=== PATIENT | female | born 1995 | race Caucasian/White ===

== ENCOUNTER 2017-06-19 17:03 | Emergency (ER) | payer MEDICAID ==
[2017-06-19 17:03] VITALS: BMI 31.1
[2017-06-19 17:09] VITALS: RESP 20
[2017-06-19] MEDS ORDERED: Sodium Chloride 0.9% 1,000 ML IV ONE (17:24)
--- NOTE | 2017-06-19 17:33 | C.PDOC ---
History Of Present Illness 21 year old female presents to the ED with complaints of left back pain and diarrhea for approximately 3-4 days. Patient has taken Motrin with no relief. She denies any past medical history, fever, chills, nausea, or vomiting. Time Seen by Provider: 06/19/17 17:14 Chief Complaint (Nursing): Back Pain History Per: Patient History/Exam Limitations: no limitations Onset/Duration Of Symptoms: Days (3-4 days) Current Symptoms Are (Timing): Still Present Quality Of Discomfort: "Pain" Previous Symptoms: None Associated Symptoms: None Recent travel outside of the [place]: No Past Medical History Reviewed: Historical Data, Nursing Documentation, Vital Signs Vital Signs: Last Vital Signs Temp 98.1 F 06/19/17 17:06 Pulse 108 H 06/19/17 17:06 Resp 20 06/19/17 17:06 BP 122/88 06/19/17 17:06 Pulse Ox 98 06/19/17 17:35 - Medical History PMH: Anxiety, Bipolar Disorder, Post Traumatic Stress Disorder - [facility] Procedures EXTRACTION OF POC, LOW CERVICAL, OPEN APPROACH (07/05/16) Family History: States: Unknown Family Hx - Social History Hx Alcohol Use: No Hx Substance Use: No - Immunization History Hx Tetanus Toxoid Vaccination: No Hx Influenza Vaccination: No Hx Pneumococcal Vaccination: No Review Of Systems Constitutional: Negative for: Fever, Chills Cardiovascular: Negative for: Chest Pain, Palpitations Respiratory: Negative for: Cough, Shortness of Breath Gastrointestinal: Positive for: Diarrhea. Negative for: Nausea, Vomiting Musculoskeletal: Positive for: Back Pain Neurological: Negative for: Weakness, Numbness Physical Exam - Physical Exam Appears: Non-toxic, No Acute Distress Skin: Warm, Dry Head: Atraumatic Eye(s): bilateral: Normal Inspection, EOMI Oral Mucosa: Moist Neck: Supple Chest: Symmetrical, No Deformity Cardiovascular: Rhythm Regular, No Murmur Respiratory: Normal Breath Sounds, No Rhonchi, No Wheezing Gastrointestinal/Abdominal: Soft, No Tenderness, No Distention, No Guarding, No Rebound Back: Paraspinal Tenderness (left parathoracic tenderness ) Extremity: Normal ROM, No Tenderness Neurological/Psych: Oriented x3, Normal Speech, Normal Cognition ED Course And Treatment - Laboratory Results Result Diagrams: 06/19/17 17:50 06/19/17 17:50 Lab Interpretation: Normal Urine POC: Negative O2 Sat by Pulse Oximetry: 98 (room air ) Progress Note: Labs and UA were ordered. Patient was given Toradol, Flexeril, and IV fluids. On re-evaluation feeling better in no distress. Abdomen soft non-tender Reassessment Condition: Improved Disposition Counseled Patient/Family Regarding: Studies Performed, Diagnosis, Need For Followup, Rx Given - Disposition Referrals: [facility] [Outside] [facility] [Outside] Disposition: HOME/ ROUTINE Disposition Time: 18:45 Condition: STABLE Prescriptions: Naproxen [Naprosyn] 1 tab PO BID PRN #25 tab PRN Reason: Pain Instructions: Acute Diarrhea (ED), Back Pain (ED) Forms: [facility] (Maltese) - POA Present On Arrival: None - Clinical Impression Clinical Impression: Low back strain, Diarrhea - Scribe Statement The provider has reviewed the documentation as recorded by the Scribe Sharmin Contreras All medical record entries made by the Scribe were at my direction and personally dictated by me. I have reviewed the chart and agree that the record accurately reflects my personal performance of the history, physical exam, medical decision making, and the department course for this patient. I have also personally directed, reviewed, and agree with the discharge instructions and disposition.
[2017-06-19 17:38] LABS: RBC URINE < 1 /hpf (0-3); URINE BILIRUBIN NEGATIVE (NEGATIVE); URINE BLOOD NEGATIVE (NEGATIVE); URINE COLOR Yellow (YELLOW); URINE GLUCOSE (UA) NORMAL (Normal); URINE KETONE NEGATIVE (NEGATIVE); URINE LEUKOCYTE ESTERASE NEG Leu/uL (Negative); URINE PROTEIN NEGATIVE (NEGATIVE); URINE UROBILINOGEN NORMAL mg/dL (0.2-1.0); WBC URINE 1 /hpf (0-5)
[2017-06-19] MEDS ORDERED: Sodium Chloride 0.9% 1,000 ML ONE (17:55)
[2017-06-19 18:01] LABS: BASO % 0.3 % (0.0-2.0); EOS % 0.8 % (0.0-4.0); HEMATOCRIT 37.2 % (34.0-47.0); LYMPH # 1.2 K/uL (1.0-4.3); LYMPH % 29.6 % (20.0-40.0); MEAN CELL VOLUME 84.7 fL (81.0-99.0); MEAN CORPUSCULAR HEMOGLOBIN 29.1 pg (27.0-31.0); MEAN CORPUSCULAR HGB CONC 34.3 g/dL (33.0-37.0); MEAN PLATELET VOLUME 9.2 fL (7.2-11.7); MONO # 0.3 K/uL (0.0-0.8); MONO % 7.6 % (0.0-10.0); RED CELL DISTRIBUTION WIDTH 12.8 % (11.5-14.5)
[2017-06-19 18:10] LABS: CHLORIDE 102 mmol/L (98-107)
[2017-06-19 18:11] LABS: POTASSIUM 3.7 mmol/L (3.6-5.2); SODIUM 137 mmol/L (132-148)
[2017-06-19 18:13] LABS: GFR AFRICAN-AMERICAN > 60
[2017-06-19 18:14] LABS: ALB/GLOB RATIO 1.4 (1.0-2.1); ALKALINE PHOSPHATASE 83 U/L (38-126); ALT/SGPT 37 U/L (9-52); AST/SGOT 26 U/L (14-36); BILIRUBIN,TOTAL 0.5 mg/dL (0.2-1.3); BLOOD UREA NITROGEN 10 mg/dL (7-17); CALCIUM 9.1 mg/dl (8.6-10.4); CARBON DIOXIDE 24 mmol/L (22-30); GLUCOSE,RANDOM 102 mg/dL (65-105); TOTAL PROTEIN 6.7 g/dL (6.3-8.3)
[2017-06-19 18:50] VITALS: BP 105/69; PULSE 77; TEMP 98.3; O2SAT 99
== END 2017-06-19 18:50 | disposition home or self-care (01) ==
LOC: C.ER 17:03
DX: S39.012A Strain of muscle, fascia and tendon of lower back, initial encounter (principal); X58.XXXA Exposure to other specified factors, initial encounter; R19.7 Diarrhea, unspecified
CPT/HCPCS: 80053; 81001; 83690; 84703; 85025; 96361; 96374; 99283; J1885; J7040

== ENCOUNTER 2017-08-04 14:03 | Emergency (ER) | payer MEDICAID ==
[2017-08-04 14:26] VITALS: BMI 30.4
[2017-08-04 14:29] VITALS: O2SAT 99
[2017-08-04 16:02] VITALS: BP 123/78; PULSE 83; RESP 18; TEMP 98.6
--- NOTE | 2017-08-04 17:20 | C.PDOC ---
History Of Present Illness Patient is a 22 y/o female who presents to the ED with a complaint of vaginal discharge since yesterday. Patient describes discharge as white/yellow in nature with no smell. Patient denies any dysuria or hematuria, or sexual activity with anyone else other than her partner. Chief Complaint (Nursing): Female Genitourinary History Per: Patient History/Exam Limitations: no limitations Onset/Duration Of Symptoms: Days (symptoms began yesterday) Current Symptoms Are (Timing): Still Present Recent travel outside of the [place]: No Past Medical History Reviewed: Historical Data, Nursing Documentation, Vital Signs Vital Signs: Last Vital Signs Temp 98.6 F 08/04/17 16:02 Pulse 83 08/04/17 16:02 Resp 18 08/04/17 16:02 BP 123/78 08/04/17 16:02 Pulse Ox 99 08/04/17 17:27 - Medical History PMH: Anxiety, Bipolar Disorder, Post Traumatic Stress Disorder Surgical History: No Surg Hx - [facility] Procedures EXTRACTION OF POC, LOW CERVICAL, OPEN APPROACH (07/05/16) Family History: States: Unknown Family Hx - Social History Hx Alcohol Use: No Hx Substance Use: No - Immunization History Hx Tetanus Toxoid Vaccination: No Hx Influenza Vaccination: No Hx Pneumococcal Vaccination: No Review Of Systems Genitourinary: Positive for: Vaginal Discharge (white/yellow in nature). Negative for: Dysuria, Hematuria Physical Exam - Physical Exam Appears: Well, Non-toxic, No Acute Distress Skin: Normal Color, Warm, Dry Head: Atraumatic, Normacephalic Oral Mucosa: Moist Cardiovascular: Rhythm Regular, No Murmur Respiratory: Normal Breath Sounds, No Rales, No Rhonchi, No Wheezing Neurological/Psych: Oriented x3, Normal Speech, Normal Cognition ED Course And Treatment O2 Sat by Pulse Oximetry: 99 (room air) Pulse Ox Interpretation: Normal Progress Note: test administered; deferred pelvic exam. Disposition - Disposition Disposition: HOME/ ROUTINE Disposition Time: 15:15 Condition: GOOD Additional Instructions: Thank you for letting us take care of you today. Your provider was Dr. Oquendo. You were treated for vaginal discharge. The emergency medical care you received today was directed at your acute symptoms. If you were prescribed any medication, please fill it and take as directed. It may take several days for your symptoms to resolve. Return to the Emergency Department if your symptoms worsen, do not improve, or if you have any other problems. Please contact your doctor or call one of the physicians/clinics you have been referred to that are listed on the Patient Visit Information form that is included in your discharge packet. Bring any paperwork you were given at discharge with you along with any medications you are taking to your follow up visit. Our treatment cannot replace ongoing medical care by a primary care provider (PCP) outside of the emergency department. Thank you for allowing the [facility] team to be part of your care today. Follow up with your doctor in 2-3 days for re-evaluation and further management. Prescriptions: Fluconazole [Diflucan] 150 mg PO ONCE #1 tab metroNIDAZOLE [Flagyl] 500 mg PO Q8 #21 tab Instructions: Bacterial Vaginosis (ED) Forms: [employer] (Latvian) - Clinical Impression Clinical Impression: Vaginosis - Scribe Statement The provider has reviewed the documentation as recorded by the Scribe Ammy Jones All medical record entries made by the Scribe were at my direction and personally dictated by me. I have reviewed the chart and agree that the record accurately reflects my personal performance of the history, physical exam, medical decision making, and the department course for this patient. I have also personally directed, reviewed, and agree with the discharge instructions and disposition.
== END 2017-08-04 16:02 | disposition home or self-care (01) ==
LOC: C.ER 14:03
DX: N76.0 Acute vaginitis (principal)

== ENCOUNTER 2017-10-22 13:30 | Emergency (ER) | payer MEDICAID ==
[2017-10-22 13:34] VITALS: BMI 28.3
--- NOTE | 2017-10-22 14:21 | C.PDOC ---
History Of Present Illness EPIG PAIN, NAUSEA SINCE YEST. HO GASTRITIS. ONSET AFTER EATING SAUSAGE LAST NIGHT. PS GETS SX "OCCASIONALLY", NO ON CURRENT GI MEDS. NO OTHER ASSOC SX EXAM MILD DIST NONTOXIC HEENT NEG ABD +EPIG TEND SOFT NO R/G GOOD TURGOR REMAINDER NEG Time Seen by Provider: 10/22/17 14:15 Chief Complaint (Nursing): Abdominal Pain History Per: Patient History/Exam Limitations: no limitations Onset/Duration Of Symptoms: Days (1) Past Medical History Reviewed: Historical Data, Nursing Documentation, Vital Signs Vital Signs: Last Vital Signs Temp 97.7 F 10/22/17 13:34 Pulse 109 H 10/22/17 13:34 Resp 18 10/22/17 13:34 BP 114/77 10/22/17 13:34 Pulse Ox 99 10/22/17 16:00 - Medical History PMH: Anxiety, Bipolar Disorder, Post Traumatic Stress Disorder - [facility] Procedures EXTRACTION OF POC, LOW CERVICAL, OPEN APPROACH (07/05/16) Family History: States: No Known Family Hx - Social History Hx Alcohol Use: No Hx Substance Use: No - Immunization History Hx Tetanus Toxoid Vaccination: No Hx Influenza Vaccination: Yes Hx Pneumococcal Vaccination: Yes Review Of Systems Except As Marked, All Systems Reviewed And Found Negative. Constitutional: Negative for: Fever Gastrointestinal: Positive for: Nausea, Abdominal Pain (epigastric pain). Negative for: Vomiting Genitourinary: Negative for: Dysuria Physical Exam - Physical Exam Appears: Non-toxic, In Acute Distress (mild) Skin: Warm, Dry, No Rash Head: Atraumatic, Normacephalic Eye(s): bilateral: Normal Inspection, PERRL, EOMI Oral Mucosa: Moist Respiratory: Normal Breath Sounds Gastrointestinal/Abdominal: Soft, Tenderness (epigastric tenderness), No Guarding, No Rebound Back: Normal Inspection, No CVA Tenderness Extremity: Normal ROM, No Swelling Neurological/Psych: Oriented x3, Normal Speech, Normal Motor ED Course And Treatment - Laboratory Results Result Diagrams: 10/22/17 15:23 10/22/17 15:23 O2 Sat by Pulse Oximetry: 99 (RA) Pulse Ox Interpretation: Normal Progress - Re-Evaluation Re-evaluation Note: 10/22/17 16:00 ABD PAIN IMPROVED. CO NECK PAIN, CASTRO. VSS. 10/22/17 16:49 FEELS BETTER. WILL DC - Data Reviewed Data Reviewed: Lab, Diagnostic imaging, Old records Medical Decision Making Medical Decision Making: PLAN: * CBC * CMP * Urinalysis * Magic Mouth Wash PO * Pepcid IVP * Protonix IVP * Zofran IVP * Sodium Chloride IV Disposition Counseled Patient/Family Regarding: Studies Performed, Diagnosis, Need For Followup, Rx Given - Disposition Referrals: YOUR,[facility]MD [Other] Disposition: HOME/ ROUTINE Disposition Time: 16:49 Condition: IMPROVED Prescriptions: Acetaminophen [Tylenol Extra Strength] 2 tab PO Q6 #30 tablet Cyclobenzaprine [Flexeril] 10 mg PO TID #15 tab Famotidine [Pepcid AC] 10 mg PO QN #30 tablet Lidocaine 5% [Lidoderm] 1 ea TD PRN PRN #10 patch PRN Reason: Pain, Moderate (4-7) Omeprazole Magnesium [Prilosec Otc] 20 mg PO QPM #30 tab Instructions: Gastritis (ED), Diet for Ulcers and Gastritis (ED), Cervical Sprain (ED) Forms: [employer] (Italian) - Clinical Impression Clinical Impression: Abdominal pain, Nausea, Neck pain - Scribe Statement The provider has reviewed the documentation as recorded by the Yisselibmiki Limon Provider Attestation: All medical record entries made by the Yisselibmiki were at my direction and personally dictated by me. I have reviewed the chart and agree that the record accurately reflects my personal performance of the history, physical exam, medical decision making, and the department course for this patient. I have also personally directed, reviewed, and agree with the discharge instructions and disposition.
[2017-10-22 14:42] LABS: RBC URINE < 1 /hpf (0-3); URINE BILIRUBIN NEGATIVE (NEGATIVE); URINE BLOOD NEGATIVE (NEGATIVE); URINE COLOR Yellow (YELLOW); URINE GLUCOSE (UA) NORMAL (Normal); URINE KETONE NEGATIVE (NEGATIVE); URINE LEUKOCYTE ESTERASE NEG Leu/uL (Negative); URINE PROTEIN NEGATIVE (NEGATIVE); URINE UROBILINOGEN NORMAL mg/dL (0.2-1.0); WBC URINE < 1 /hpf (0-5)
[2017-10-22] MEDS ORDERED: Sodium Chloride 0.9% 1,000 ML IV ONE (14:47)
[2017-10-22] MEDS ORDERED: Mag&Al/Simet/Diphen/Lido 237 ML KIT PO STA (14:49)
[2017-10-22] MEDS ORDERED: Sodium Chloride 0.9% 1,000 ML ONE (15:04)
[2017-10-22 15:27] LABS: BASO % 0.2 % (0.0-2.0); EOS # 0.1 K/uL (0.0-0.7); EOS % 1.1 % (0.0-4.0); HEMATOCRIT 41.3 % (34.0-47.0); LYMPH % 13.2 % (20.0-40.0); MEAN CELL VOLUME 86.2 fL (81.0-99.0); MEAN CORPUSCULAR HEMOGLOBIN 29.6 pg (27.0-31.0); MEAN CORPUSCULAR HGB CONC 34.3 g/dL (33.0-37.0); MONO # 0.3 K/uL (0.0-0.8); MONO % 3.8 % (0.0-10.0); RED CELL DISTRIBUTION WIDTH 13.3 % (11.5-14.5)
[2017-10-22 15:29] LABS: WHITE BLOOD COUNT 7.3 K/uL (4.8-10.8)
[2017-10-22 15:40] LABS: ALB/GLOB RATIO 1.4 (1.0-2.1); ALKALINE PHOSPHATASE 91 U/L (38-126); ALT/SGPT 55 U/L (9-52); AST/SGOT 39 U/L (14-36); BILIRUBIN,TOTAL 0.5 mg/dL (0.2-1.3); BLOOD UREA NITROGEN 11 mg/dL (7-17); CALCIUM 8.2 mg/dl (8.6-10.4); CARBON DIOXIDE 29 mmol/L (22-30); CHLORIDE 98 mmol/L (98-107); GFR AFRICAN-AMERICAN > 60; GLUCOSE,RANDOM 83 mg/dL (65-105); POTASSIUM 4.3 mmol/L (3.6-5.2); SODIUM 134 mmol/L (132-148); TOTAL PROTEIN 7.4 g/dL (6.3-8.3)
[2017-10-22] MEDS ORDERED: Lidocaine 5% Patch TD STA (15:57)
[2017-10-22] MEDS ORDERED: Lidocaine 5% Patch TD ONE (16:22)
[2017-10-22 17:04] VITALS: BP 116/74; PULSE 87; RESP 16; TEMP 98.4; O2SAT 98
== END 2017-10-22 17:15 | disposition home or self-care (01) ==
LOC: C.ER 13:30
DX: M54.2 Cervicalgia (principal); R11.0 Nausea; R10.9 Unspecified abdominal pain
CPT/HCPCS: 80053; 81001; 83690; 85025; 96374; 96375; 99285; C9113; J1885; J7040

== ENCOUNTER 2018-02-02 18:40 | Emergency (ER) | payer MEDICAID ==
[2018-02-02 18:40] VITALS: BMI 28.3
[2018-02-02 19:14] VITALS: O2SAT 99
[2018-02-02 20:20] LABS: HCG,QUALITATIVE URINE NEGATIVE (NEGATIVE)
[2018-02-02 20:25] LABS: SQUAMOUS EPITHIAL < 1 /hpf (0-5); URINE BILIRUBIN NEGATIVE (NEGATIVE); URINE BLOOD NEGATIVE (NEGATIVE); URINE CLARITY Clear (Clear); URINE COLOR Yellow (YELLOW); URINE GLUCOSE (UA) NORMAL (Normal); URINE LEUKOCYTE ESTERASE NEG Leu/uL (Negative); URINE PROTEIN 1+ mg/dL (NEGATIVE)
--- NOTE | 2018-02-02 20:58 | C.PDOC ---
History Of Present Illness Patient is a 22 y/o female who presents to the ED with two children complaining of psoriasis on scalp and face and questionable UTI. Patient admits urinary frequency and suprapubic discomfort since yesterday. No other physical complaints at this time. Time Seen by Provider: 02/02/18 19:20 Chief Complaint (Nursing): Abnormal Skin Integrity History Per: Patient History/Exam Limitations: no limitations Onset/Duration Of Symptoms: Days (1) Current Symptoms Are (Timing): Still Present Quality Of Symptoms: Itching Recent travel outside of the [place]: No Past Medical History Reviewed: Historical Data, Nursing Documentation, Vital Signs Vital Signs: Last Vital Signs Temp 98.3 F 02/02/18 21:20 Pulse 85 02/02/18 21:20 Resp 16 02/02/18 21:20 BP 105/69 02/02/18 21:20 Pulse Ox 99 02/02/18 21:51 - Medical History PMH: Anxiety, Bipolar Disorder, Post Traumatic Stress Disorder Surgical History: No Surg Hx - [facility] Procedures EXTRACTION OF POC, LOW CERVICAL, OPEN APPROACH (07/05/16) Family History: States: Unknown Family Hx - Social History Hx Alcohol Use: No Hx Substance Use: No - Immunization History Hx Tetanus Toxoid Vaccination: No Hx Influenza Vaccination: Yes Hx Pneumococcal Vaccination: Yes Review Of Systems Gastrointestinal: Positive for: Abdominal Pain (suprapubic discomfort) Genitourinary: Positive for: Frequency Skin: Positive for: Other (psoriasis outbreak on scalp and face) Physical Exam - Physical Exam Appears: Well, No Acute Distress Skin: Rash (scalp scaling, erythematous, scalp facial rash) Head: Atraumatic, Normacephalic Eye(s): bilateral: Normal Inspection Oral Mucosa: Moist Neck: Normal ROM, Supple Lymphatic: No Adenopathy Cardiovascular: Rhythm Regular Respiratory: Normal Breath Sounds Gastrointestinal/Abdominal: Soft, No Tenderness, No Guarding, No Rebound Back: No CVA Tenderness Neurological/Psych: Oriented x3, Normal Speech, Normal Cognition ED Course And Treatment O2 Sat by Pulse Oximetry: 99 Progress Note: Macrobid and urine test administered. Patient is resting comfortably and stable for discharge. Advised to follow up with PMD if symptoms worsen. Disposition - Disposition Disposition: HOME/ ROUTINE Disposition Time: 20:43 Condition: STABLE Additional Instructions: Follow up with your PMD within 1-2 days. Return to ED if feel worse. Prescriptions: Clobetasol Propionate/Emoll [Clobetasol Emulsion 0.05% Foam] 1 appl TP BID #100 g Fluocinolone/Shower Cap [[place]/Fs 118.28 ml] 1 appl TP QPM #1 oil Anthralin [Drithocreme Hp] 1 unit TP TID #1 cre Nitrofurantoin Macrocrystals [Macrobid] 1 cap PO BID #14 cap Phenazopyridine [Pyridium] 200 mg PO TID #6 tab Instructions: Urinary Tract Infections in Adults, Psoriatic Arthritis in Adults Forms: [employer] (Albanian) - Clinical Impression Clinical Impression: Psoriasis, UTI (urinary tract infection) - Scribe Statement The provider has reviewed the documentation as recorded by the Scribe Ammy Joens All medical record entries made by the Scribe were at my direction and personally dictated by me. I have reviewed the chart and agree that the record accurately reflects my personal performance of the history, physical exam, medical decision making, and the department course for this patient. I have also personally directed, reviewed, and agree with the discharge instructions and disposition.
[2018-02-02 21:21] VITALS: BP 105/69; PULSE 85; RESP 16; TEMP 98.3
== END 2018-02-02 21:25 | disposition home or self-care (01) ==
LOC: C.ER 18:40
DX: L40.9 Psoriasis, unspecified (principal); N39.0 Urinary tract infection, site not specified

== ENCOUNTER 2018-02-16 19:21 | Emergency (ER) | payer MEDICAID ==
[2018-02-16 19:22] VITALS: BMI 28.3
--- NOTE | 2018-02-16 19:56 | C.PDOC ---
History Of Present Illness 22yo female, with history of PTSD, anxiety, bipolar disorder, compliant with her psychiatric medications, presents to ED for evaluation of chest pain. Patient states she had a panic attack yesterday and has been feeling chest discomfort, with associated shortness of breath and left arm discomfort as well. She states she was involved in an argument with her partner which triggered her panic attack. She denies any abdominal pain, nausea, vomiting, and offers no other medical complaints. She denies any drug or alcohol use as well. Time Seen by Provider: 02/16/18 20:00 Chief Complaint (Nursing): Chest Pain History Per: Patient History/Exam Limitations: no limitations Onset/Duration Of Symptoms: Days (1) Current Symptoms Are (Timing): Still Present Quality: Pressure Additional History Per: Patient Past Medical History Reviewed: Historical Data, Nursing Documentation, Vital Signs Vital Signs: Last Vital Signs Temp 98 F 02/16/18 21:56 Pulse 81 02/16/18 22:35 Resp 15 02/16/18 22:35 BP 103/66 02/16/18 22:35 Pulse Ox 98 02/16/18 22:52 - Medical History PMH: Anxiety, Bipolar Disorder, Post Traumatic Stress Disorder Surgical History: No Surg Hx - [facility] Procedures EXTRACTION OF POC, LOW CERVICAL, OPEN APPROACH (07/05/16) Family History: States: Unknown Family Hx - Social History Hx Alcohol Use: No Hx Substance Use: No - Immunization History Hx Tetanus Toxoid Vaccination: No Hx Influenza Vaccination: Yes Hx Pneumococcal Vaccination: No Review Of Systems Except As Marked, All Systems Reviewed And Found Negative. Constitutional: Negative for: Fever, Chills Cardiovascular: Positive for: Chest Pain Respiratory: Positive for: Shortness of Breath Gastrointestinal: Negative for: Nausea, Vomiting, Abdominal Pain Physical Exam - Physical Exam Appears: Non-toxic, No Acute Distress Skin: Normal Color, Warm, Dry Head: Atraumatic, Normacephalic Eye(s): bilateral: Normal Inspection, PERRL, EOMI Neck: Normal ROM, Supple Chest: Symmetrical Cardiovascular: Rhythm Regular Respiratory: Normal Breath Sounds, No Wheezing Gastrointestinal/Abdominal: Normal Exam, Soft, No Tenderness Extremity: Normal ROM, No Deformity, No Swelling Neurological/Psych: Oriented x3 ED Course And Treatment - Laboratory Results Result Diagrams: 02/16/18 20:12 02/16/18 20:12 ECG: Interpreted By Me ECG Rhythm: Sinus Rhythm ECG Interpretation: Normal Interpretation Of ECG: Normal intervals Rate From EC O2 Sat by Pulse Oximetry: 98 (RA) Pulse Ox Interpretation: Normal Medical Decision Making Medical Decision Making: Impression: Anxiety Plan: -- Labs -- EKG -- Xanax 0.25 mg PO Time: 2129 Labs reviewed and indicative of elevated DDimer. CT Angio Chest [PE] protocol ordered. Time: 2246 CT Angio Chest FINDINGS: Pulmonary arteries: No pulmonary embolism. 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 Lungs: No consolidation. Pleural space: No significant effusion. No pneumothorax. Heart: No cardiomegaly. No significant pericardial effusion. Bones/joints: No acute fracture. Soft tissues: Unremarkable. Lymph nodes: No pathologically enlarged lymph nodes. IMPRESSION: 1. No CT evidence of pulmonary embolism. 2. Incidental/non-acute findings are described above. Patient informed of CT findings. She reports improvement in chest pain as well. Stable for discharge home, advised to follow up with PCP in 2-3 days. Disposition - Disposition Referrals: [facility] [Outside] Disposition: HOME/ ROUTINE Disposition Time: 22:52 Condition: STABLE Prescriptions: ALPRAZolam [Xanax] 0.25 mg PO TID PRN #15 tab PRN Reason: Anxiety Instructions: Panic Disorder Forms: [facility] (Kinyarwanda) Print Language: AZERI - Clinical Impression Clinical Impression: Chest pain, Anxiety - Scribe Statement The provider has reviewed the documentation as recorded by the Scribe (Dariela Slaughter) Provider Attestation: All medical record entries made by the Scribe were at my direction and personally dictated by me. I have reviewed the chart and agree that the record accurately reflects my personal performance of the history, physical exam, medical decision making, and the department course for this patient. I have also personally directed, reviewed, and agree with the discharge instructions and disposition.
[2018-02-16 20:17] LABS: BASO % 0.6 % (0.0-2.0); EOS # 0.1 K/uL (0.0-0.7); EOS % 2.1 % (0.0-4.0); HEMOGLOBIN 13.1 g/dL (11.0-16.0); LYMPH # 2.4 K/uL (1.0-4.3); LYMPH % 35.5 % (20.0-40.0); MEAN CELL VOLUME 85.6 fL (81.0-99.0); MEAN CORPUSCULAR HEMOGLOBIN 29.5 pg (27.0-31.0); MEAN CORPUSCULAR HGB CONC 34.4 g/dL (33.0-37.0); MEAN PLATELET VOLUME 9.3 fL (7.2-11.7); MONO # 0.4 K/uL (0.0-0.8); MONO % 5.6 % (0.0-10.0); NEUT # 3.8 K/uL (1.8-7.0); NEUT % 56.2 % (50.0-75.0); NRBC % 0.1 % (0.0-2.0); RBC 4.44 Mil/uL (3.80-5.20); WHITE BLOOD COUNT 6.7 K/uL (4.8-10.8)
[2018-02-16 20:28] LABS: ALB/GLOB RATIO 1.2 (1.0-2.1); ALBUMIN 3.9 g/dL (3.5-5.0); ALT/SGPT 16 U/L (9-52); AST/SGOT 21 U/L (14-36); BLOOD UREA NITROGEN 12 mg/dL (7-17); CALCIUM 8.9 mg/dl (8.6-10.4); GFR AFRICAN-AMERICAN > 60; GFR NON-AFRICAN AMERICAN > 60
[2018-02-16] MEDS ORDERED: Iodixanol 320 MG/ML 100 ML BOTTLE IV ONE (21:40)
[2018-02-16 21:58] VITALS: TEMP 98
[2018-02-16 22:47] VITALS: BP 103/66; PULSE 81; RESP 15
--- NOTE | 2018-02-16 22:47 | CT ---
EXAM: CT Angiography Chest With Intravenous Contrast CLINICAL HISTORY: 22 years old, female; Pain; Chest pain; Other: SOB and anxiety; Patient HX: High d-dimmer; Additional info: Chest pain, SOB TECHNIQUE: Axial computed tomographic angiography images of the chest with intravenous contrast using pulmonary embolism protocol. All CT scans at this facility use one or more dose reduction techniques, viz.: automated exposure control; ma/kV adjustment per patient size (including targeted exams where dose is matched to indication; i.e. head); or iterative reconstruction technique. MIP reconstructed images were created and reviewed. Coronal and sagittal reformatted images were created and reviewed. CONTRAST: 100 mL of visipaque administered intravenously. COMPARISON: No relevant prior studies available. FINDINGS: Pulmonary arteries: No pulmonary embolism. 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 Lungs: No consolidation. Pleural space: No significant effusion. No pneumothorax. Heart: No cardiomegaly. No significant pericardial effusion. Bones/joints: No acute fracture. Soft tissues: Unremarkable. Lymph nodes: No pathologically enlarged lymph nodes. IMPRESSION: 1. No CT evidence of pulmonary embolism. 2. Incidental/non-acute findings are described above.
[2018-02-16 22:52] VITALS: O2SAT 98
--- NOTE | 2018-02-17 07:54 | RAD ---
Chest x-ray single frontal view History: Chest pain. Comparison: None available. Findings: Suggestion of a right-sided aortic arch. Correlation with chest CT may be helpful clinically indicated. Mild venous congestion. Heart size within normal limits. Impression: Suggestion of a right-sided aortic arch. Correlation with chest CT may be helpful clinically indicated. Mild venous congestion.
--- NOTE | 2018-02-17 18:18 | CARD ---
APPROVED REPORT EKG Measurement Heart [id number] MD [id number] <Conclusion> Normal sinus rhythm Possible Left atrial enlargement Borderline ECG
== END 2018-02-16 23:03 | disposition home or self-care (01) ==
LOC: C.ER 19:21
DX: R07.9 Chest pain, unspecified (principal); F41.9 Anxiety disorder, unspecified
CPT/HCPCS: 71045; 71275; 80053; 84484; 84703; 85025; 85378; 93005; 99285; Q9967

== ENCOUNTER 2018-02-17 09:49 | Emergency (ER) | payer MEDICAID ==
[2018-02-17 09:49] VITALS: BMI 28.3
[2018-02-17 10:08] VITALS: O2SAT 99
--- NOTE | 2018-02-17 10:53 | C.PDOC ---
History Of Present Illness <Phylicia Collins - Last Filed: 02/17/18 11:25> <Veronica Betts DO - Last Filed: 02/17/18 11:37> Patient is a 22 year old female with PMHx bipolar disorder and psoriasis who presents to the ED with complaint of erythematous and pruritic skin lesions first noticed this morning around 4:30-5AM. Patient was seen in the ED on 02/16 with complaint of panic attack and chest pain. CTA of chest was done after blood work showed elevated D-dimer of 460. CTA of chest was negative for pulmonary embolus and patient was discharged home. Patient states she has never had IV contrast previously. Patient reports 3 years ago she had a rice dish that had mixed seafood in it and reports having a bad reaction to clams. Patient states she eats shrimp. She states she took Claritin this morning around 5AM but did not notice any benefit. She currently denies shortness of breath or difficulty swallowing. Patient denies throat tightness or dyspnea with onset of symptoms. (Veronica Betts DO) <Phylicia Collins - Last Filed: 02/17/18 11:25> History Per: Patient Onset/Duration Of Symptoms: Hrs Current Symptoms Are (Timing): Still Present Possible Cause: Other (IV contrast) Associated Symptoms: Skin Rash, Redness Home/EMS Treatment: Other (Claritin) Severity: Moderate <Veronica Betts DO - Last Filed: 02/17/18 11:37> Time Seen by Provider: 02/17/18 10:35 Chief Complaint (Nursing): Allergic Reaction Past Medical History - Medical History PMH: Anxiety, Bipolar Disorder, Post Traumatic Stress Disorder Family History: States: Unknown Family Hx - Social History Hx Alcohol Use: No Hx Substance Use: No - Immunization History Hx Tetanus Toxoid Vaccination: No Hx Influenza Vaccination: Yes Hx Pneumococcal Vaccination: No <Veronica Betts DO - Last Filed: 02/17/18 11:37> Vital Signs: Last Vital Signs Temp 98.2 F 02/17/18 10:03 Pulse 99 H 02/17/18 10:03 Resp 18 02/17/18 10:03 BP 114/75 02/17/18 10:03 Pulse Ox 99 02/17/18 11:06 - [facility] Procedures EXTRACTION OF POC, LOW CERVICAL, OPEN APPROACH (07/05/16) Review Of Systems Constitutional: Negative for: Fever, Chills Eyes: Negative for: Pain, Vision Change ENT: Negative for: Ear Pain, Ear Discharge, Nose Pain, Nose Discharge, Nose Congestion, Mouth Swelling, Throat Pain, Throat Swelling Cardiovascular: Negative for: Chest Pain, Palpitations Respiratory: Negative for: Cough, Shortness of Breath, Wheezing Gastrointestinal: Negative for: Nausea, Vomiting, Abdominal Pain, Diarrhea Genitourinary: Negative for: Dysuria, Frequency, Incontinence Musculoskeletal: Negative for: Neck Pain, Back Pain Skin: Positive for: Rash Neurological: Negative for: Weakness, Numbness <Veronica Betts DO - Last Filed: 02/17/18 11:37> Physical Exam - Physical Exam Appears: Non-toxic, No Acute Distress Skin: Warm, Dry (dry scaling skin around nose), Rash (erythematous blotchy lesions to upper chest, upper back, face- blanchable) Head: Atraumatic, Normacephalic Eye(s): bilateral: PERRL, EOMI, Eyelid Inflammation (erythematous and swollen skin on face and around eyes) Ear(s): Bilateral: Normal Nose: Normal, No Flaring, No Discharge Oral Mucosa: Moist Tongue: Normal Appearing, No Swelling, No Lesions Lips: Normal Appearing Throat: Normal, No Erythema, No Exudate, No Drooling, No Mass Neck: Normal ROM, No Midline Cervical Tenderness, No Paracervical Tenderness Lymphatic: No Adenopathy Chest: Symmetrical Cardiovascular: Rhythm Regular Respiratory: Normal Breath Sounds Gastrointestinal/Abdominal: Normal Exam, Bowel Sounds, Soft, No Tenderness Back: No CVA Tenderness, No Decreased ROM, Other (erythematous skin to upper back) Extremity: Normal ROM, No Tenderness, No Pedal Edema Neurological/Psych: Oriented x3, Normal Speech <Veronica Betts DO - Last Filed: 02/17/18 11:37> ED Course And Treatment O2 Sat by Pulse Oximetry: 99 Progress Note: Patient states possible reaction to crab in past. Advised patient to avoid shellfish. Patient advised she may have reaction from IV contrast in future. Patient given pepcid, benadryl, prednisone. <Veronica Betts DO - Last Filed: 02/17/18 11:37> Supervising Attending Note - Supervising Attending Note Comment: RESIDENT - Attestation: I have personally seen and examined this patient.: Yes I have fully participated in the care of the patient.: Yes I have reviewed all pertinent clinical information: Yes <Phylicia Collins - Last Filed: 02/17/18 11:25> <Veronica Betts DO - Last Filed: 02/17/18 11:37> - Notes: Notes:: HIVES, ITCH AFTER IVC YESTERDAY. NO SOB, STRIDOR. EXAM ABOVE (Phylicia Collins) Disposition <Phylicia Collins - Last Filed: 02/17/18 11:25> Counseled Patient/Family Regarding: Diagnosis, Need For Followup, Rx Given - Disposition Disposition Time: 11:36 <Veronica Betts DO - Last Filed: 02/17/18 11:37> - Disposition Disposition: HOME/ ROUTINE Condition: GOOD Additional Instructions: You will need to see your primary medical doctor within the next 1-2 days. Please return to the ED if symptoms re-occur or worsen. 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 MD/DO has examined the patient and agrees with the treatment plan. <Veronica Betts DO - Last Filed: 02/17/18 11:37>
[2018-02-17] MEDS ORDERED: DiphenhydrAMINE 12.5 mg/5 ml LIQ UD (5 ml) PO STA (10:54)
[2018-02-17 11:47] VITALS: BP 110/62; PULSE 89; RESP 17; TEMP 98.6
== END 2018-02-17 11:45 | disposition home or self-care (01) ==
LOC: C.ER 09:49
DX: L50.0 Allergic urticaria (principal); Z91.041 Radiographic dye allergy status

== ENCOUNTER 2018-02-22 12:15 | Emergency (ER) | payer MEDICAID ==
[2018-02-22 12:26] VITALS: BMI 29.0
[2018-02-22 12:30] VITALS: TEMP 97.8
--- NOTE | 2018-02-22 13:13 | C.PDOC ---
History Of Present Illness 22 year old female presents to the ER with a complaint of a rash to the face after using a cream. Patient was seen before for a rash, she was on oral steroids and anthralin, however, she states the rash has worsened over the past 3 days. Denies fever, SOB, or throat swelling. Time Seen by Provider: 02/22/18 12:28 Chief Complaint (Nursing): Abnormal Skin Integrity History Per: Patient History/Exam Limitations: no limitations Onset/Duration Of Symptoms: Days Current Symptoms Are (Timing): Still Present Recent travel outside of the [place]: No Past Medical History Reviewed: Historical Data, Nursing Documentation, Vital Signs Vital Signs: Last Vital Signs Temp 97.8 F 02/22/18 12:26 Pulse 84 02/22/18 13:22 Resp 20 02/22/18 13:22 BP 109/76 02/22/18 13:22 Pulse Ox 99 02/22/18 13:22 - Medical History PMH: Anxiety, Bipolar Disorder, Post Traumatic Stress Disorder - [facility] Procedures EXTRACTION OF POC, LOW CERVICAL, OPEN APPROACH (07/05/16) Family History: States: Unknown Family Hx - Social History Hx Alcohol Use: No Hx Substance Use: No - Immunization History Hx Tetanus Toxoid Vaccination: No Hx Influenza Vaccination: No Hx Pneumococcal Vaccination: Yes Review Of Systems Constitutional: Negative for: Fever ENT: Negative for: Throat Swelling Respiratory: Negative for: Shortness of Breath Skin: Positive for: Rash Physical Exam - Physical Exam Appears: Non-toxic Skin: Warm, Dry, Rash (Erythematous, nonblanching to bilateral cheeks, nose, and right forehead) Head: Atraumatic, Normacephalic Eye(s): bilateral: Normal Inspection, PERRL, EOMI Ear(s): Bilateral: Normal Oral Mucosa: Moist Throat: No Erythema, No Exudate Neck: Normal ROM, Supple Chest: Symmetrical, No Tenderness Cardiovascular: Rhythm Regular, No Friction Rub, No Murmur Respiratory: Normal Breath Sounds, No Stridor, No Wheezing Neurological/Psych: Oriented x3, Normal Speech, Normal Motor Gait: Steady ED Course And Treatment O2 Sat by Pulse Oximetry: 96 (Room air) Pulse Ox Interpretation: Normal Disposition - Disposition Referrals: Jazz Carrasco APN [Advanced Practice Nurse] - Jaxon Herrera MD [Non-Staff] - Siddharth Escobar DO [Doctor Osteopathy] - Krysten Alegre PA [Physician Choker Hooker] - Disposition: HOME/ ROUTINE Disposition Time: 13:00 Condition: STABLE Additional Instructions: Follow up with the Director Prison within 1 week. Return if worsened. 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 - Scribe Statement The provider has reviewed the documentation as recorded by the Scribe Saqib Farah All medical record entries made by the [place] were at my direction and personally dictated by me. I have reviewed the chart and agree that the record accurately reflects my personal performance of the history, physical exam, medical decision making, and the department course for this patient. I have also personally directed, reviewed, and agree with the discharge instructions and disposition.
[2018-02-22 13:23] VITALS: BP 109/76; PULSE 84; RESP 20
[2018-02-26 03:36] VITALS: O2SAT 96
== END 2018-02-22 13:28 | disposition home or self-care (01) ==
LOC: C.ER 12:15
DX: L40.9 Psoriasis, unspecified (principal)